=== PATIENT | female | born 1995 | race Caucasian/White ===

== ENCOUNTER 2022-08-06 18:47 | Emergency (ER) | payer SELFPAY ==
[~2022-08-06] VITALS: Ht 154.9 cm; Wt 56.0 kg
[2022-08-06 18:53] VITALS: BP 101/72
[2022-08-06 19:00] VITALS: BP 112/74
[2022-08-06] MEDS ORDERED: VENTOLIN HFA IN (19:27)
[2022-08-06 19:30] VITALS: BP 108/64
[2022-08-06 19:39] VITALS: BP 108/64
== END 2022-08-06 19:48 | disposition home or self-care (01) | DRG 833 ==
LOC: ED 18:47
DX: O9A.212 Injury, poisoning and certain other consequences of external causes complicating pregnancy, second trimester (principal); T59.811A Toxic effect of smoke, accidental (unintentional), initial encounter; J70.5 Respiratory conditions due to smoke inhalation; Y92.009 Unspecified place in unspecified non-institutional (private) residence as the place of occurrence of the external cause; Z3A.14 14 weeks gestation of pregnancy